=== PATIENT | female | born 1980 | race Hispanic/Latino ===

== ENCOUNTER 2019-12-18 06:57 | Outpatient (CLI) | payer BC, OTHER ==
[2019-12-18 14:03] LABS: Hemoglobin 12.3 g/dL (12.0-16.0); Mean Corpuscular HGB CONC 31.8 g/dL (32.0-36.0); Mean Corpuscular Hemoglobin 25.1 pg (27.0-31.0); Mean Corpuscular Volume 78.8 fL (78.0-98.0); Mean Platelet Volume 9.3 fL (7.4-10.4); Platelet Count 275 thou/uL (130-400); White Blood Cell (WBC) Count 6.8 thou/uL (4.8-10.8)
[2019-12-18 15:05] LABS: BHCG - Serum Negative (NEGATIVE); Pregs Control Background? CLEAR/WHITE (CLR/WHITE); Pregs Control Bar Appear? YES (CONTROL BAR)
[2019-12-19 12:08] LABS: SARS-CoV-2 MS2 Positive; SARS-CoV-2 N Gene Negative; SARS-CoV-2 S Gene Negative; SARS-CoV-2 orf1ab Negative
== END 2019-12-18 06:58 | disposition home or self-care (01) ==
LOC: LABBT 06:57
PROVIDERS: ATTEND Student in an Organized Health Care Education/Training Program
DX: Z01.812 Encounter for preprocedural laboratory examination (principal); Z11.59 Encounter for screening for other viral diseases; N85.01 Benign endometrial hyperplasia
CPT/HCPCS: 84703; 85027; 86850; 86900; 86901; 87635; U0003

== ENCOUNTER 2019-12-22 05:37 | Day surgery (SDC) | payer BC ==
[2019-12-17 10:01] VITALS: BMI 44.4
[2019-12-22] MEDS ORDERED: Gabapentin 300 MG CAP ONE (06:17)
[2019-12-22] MEDS ORDERED: Famotidine/PF 20 mg/2ml Vial ONE (06:17)
[2019-12-22] MEDS ORDERED: CeleCOXIB 100 MG CAP ONE (06:17)
[2019-12-22] MEDS ORDERED: Bupivacaine PF 0.5% 30 ML VIAL ONE (06:56)
[2019-12-22] MEDS ORDERED: Lidocaine 1% w/Epinephrine 1:100K 20 ML VIAL ONE (06:56)
[2019-12-22] MEDS ORDERED: Fentanyl 250 MCG/5 ML VIAL ONE (06:57)
[2019-12-22] MEDS ORDERED: Promethazine HCl 25 MG/ML VIAL SLOW IVP PRN (10:00)
[2019-12-22] MEDS ORDERED: Promethazine HCl 25 MG/ML VIAL IM PRN (10:00)
[2019-12-22] MEDS ORDERED: Ondansetron HCl/PF 4 MG/2 ML Vial IVP PRN (10:00)
[2019-12-22] MEDS ORDERED: Fentanyl 100 MCG/2 ML VIAL ONE (10:36)
[2019-12-22] MEDS ORDERED: Dexamethasone 20 MG/5 ML VIAL ONE (11:59)
[2019-12-22] MEDS ORDERED: Lidocaine 1% PF 5 ML VIAL ONE (11:59)
[2019-12-22] MEDS ORDERED: Ondansetron PF 4 MG/2 ML Vial ONE ×2 (11:59→12:24)
[2019-12-22] MEDS ORDERED: Glycopyrrolate 0.2 MG/ML 5 ML SYRINGE ONE (11:59)
[2019-12-22] MEDS ORDERED: Rocuronium Bromide 10 MG/ML (10ML VIAL) ONE (11:59)
[2019-12-22] MEDS ORDERED: PHENYLEPHRINE-NS 100 MCG/ML 10 ML SYRINGE ONE (11:59)
[2019-12-22] MEDS ORDERED: ePHEDrine 50 MG/ML VIAL ONE (11:59)
[2019-12-22] MEDS ORDERED: PROPOFOL 200 MG/20 ML VIAL ONE (11:59)
[2019-12-22] MEDS ORDERED: Estradiol 0.05mg/24 Hour Patch (Weekly) TD SCH (12:30)
--- NOTE | 2019-12-22 13:33 | OP ---
DATE OF PROCEDURE: 12/22/2019 PREOPERATIVE DIAGNOSES: 1. Complex hyperplasia. 2. Left adnexal mass. 3. Menorrhagia. POSTOPERATIVE DIAGNOSES: 1. Complex hyperplasia. 2. Left adnexal mass. 3. Menorrhagia. PROCEDURE PERFORMED: Robotic-assisted total laparoscopic hysterectomy and bilateral salpingo-oophorectomy. ANESTHESIA: General endotracheal. MARKETING BUDGET ANALYST SURGEON: Lana Nielsen. ESTIMATED BLOOD LOSS: 50 mL. IVF: 1400 mL of crystalloid. URINE OUTPUT: 250 mL of clear urine. COMPLICATIONS: None. DRAINS: Posada catheter. PATHOLOGY: Uterus, cervix, bilateral fallopian tubes and ovaries. FINDINGS: Uterus 11- to 12-week size. Normal-appearing cervix and vagina. Large left adnexal mass adherent to the pelvic sidewall. Right ovarian cyst present. Bilateral ureters traced in the pelvic sidewall down to where they crossed under the uterine artery. Bladder without injury on back filling with saline and excellent hemostasis. DESCRIPTION OF PROCEDURE: The patient was taken to the operating room where general anesthesia was obtained without difficulty. The patient was prepped and draped in a sterile fashion in the dorsal lithotomy position. Posada catheter was placed in the bladder. A speculum was placed in the vagina. The anterior lip of the cervix was grasped with a single-tooth tenaculum. The uterus then sounded to 11 cm. The cervix was progressively dilated with Horacio dilators. A HARPAL manipulator was assembled with a 10-cm tip and a 4-cm colpotomizer ring. The manipulator was inserted into the uterus and the ring was advanced to fit snugly around the cervix. The tenaculum and speculum were removed out of the vagina. Legs were placed in low lithotomy. Attention was turned to the abdomen. A mixture of 1% lidocaine with epinephrine and 0.25% Marcaine was infiltrated into the umbilicus and a 12-mm skin incision was made in the umbilicus. A Veress needle was inserted and opening pressure was noted to be 6 mmHg. Pneumoperitoneum was obtained without difficulty. The Veress needle was removed. The 12-mm trocar was advanced into the abdomen and confirmed placement with robotic camera. Trendelenburg was obtained. Anesthesia was having difficulty with ventilation. Therefore, Trendelenburg was reduced. Right and left lower quadrant 8-mm robotic trocars were placed under direct visualization after infiltrating with anesthetic. A right upper quadrant 11-mm port was also placed under direct visualization after infiltrating with anesthetic. The above findings were noted. There was adequate visualization with the patient in minimal Trendelenburg. Therefore, the robot was docked. The right robotic arm contained monopolar scissors. Left robotic arm contained a fenestrated bipolar. The surgeon console then took control. The right ovary was noted to have multiple cysts present, these were not large. However, secondary to the left-sided mass, the decision was made to remove the right side as well as it may have some pathology going on. The IP ligament was clamped with the fenestrated and cauterized after noting the ureter running medially at the pelvic brim. This was incised and cautery followed by incision was performed across the meso-ovarium and down to the midportion of the round ligament, that was cauterized and incised. The posterior leaf of the broad ligament was dropped down after undermining and dissecting retroperitoneum off the superficial layer of peritoneum. This was incised down to the uterosacral ligament and the lateral retroperitoneum was then dissected out to identify the ureter running in the pelvic sidewall, crossing underneath the uterine vessel. The anterior leaf of the broad ligament was also incised down to the level of the bladder flap. The vessels were skeletonized on the right side and the uterine artery was cauterized after skeletonization. Attention was then turned to the left side. There were some filmy adhesions of the sigmoid to the pelvic sidewall right near the IP ligament. This was incised carefully with the scissors, layering out. The peritoneum was also incised laterally to the IP ligament in order to make a window. The ovary was adherent to the pelvic sidewall. For the most part, this was able to be peeled away bluntly just by putting traction on the ovary. Once the IP ligament was dissected out, it was clamped across. The ureter was noted medially at the pelvic brim and the ligament was elevated off the pelvic brim and the sidewall and this was cauterized and then incised. The peritoneum was then layered out after incising the IP in order to ensure no underlying structures were being dissected or incised. Again, the ureter was more posterior than the area that was being dissected. The peritoneum was layered out and taken all the way down to the distal-most portion of the ovary. The medial utero-ovarian was also cauterized and incised and this allowed the ovary to be freed and placed the ovary in the upper abdomen. The uterine vessels were then skeletonized on the left side. The bladder flap was created both bluntly dissecting down the bladder below the level of the colpotomizer ring as well as sharply incising on the pubocervical fascia. The bladder was backfilled to ensure no bladder injury had occurred, which was negative, and the vessels were cauterized bilaterally at the uterine artery. These were then incised. It was noted that there was some increased vascularity over the bladder flap and this required cautery for hemostasis. Colpotomy was then performed circumferentially and the uterus had been completely transected. The uterus was then placed into the vagina. At that time, secondary to the size of the adnexal mass, decision was made to back it up. The applied Medical retrieval bag was then inserted through the vagina into the abdomen. The scissors were traded out for the needle company tanker truck driver. Hemostasis was achieved of the vaginal cuff and irrigation was performed. The vagina was then closed with a 2-0 STRATAFIX barbed suture in a running fashion, noting excellent hemostasis and ran back for a 2nd layer. The needle was cut and removed out of the abdomen. At that time, I scrubbed back in and undocked the camera port. The umbilical incision was extended with a knife and the Corey's were used to extend the fascia to 3 cm and accommodate the mini Shaheen and GelPOINT. The Mini Shaheen was placed into the umbilical incision and the GelPOINT was affixed atop it with the port in place. The robot camera port was then re-docked and I went back to the console, opened the bag and placed the ovary in the bag. The bag was then brought out of the Mini GelPOINT. The robot was then completely undocked and the pneumoperitoneum was released. All instruments were removed out of the abdomen. The bag was brought out of the mini Shaheen and the ovary was grasped and incised. There was a copious amount of sebaceous material as well as hair, identifying this as a dermoid cyst, that was suctioned out of there. There was no spillage of any contents on the skin and subcutaneous tissue or inside the abdomen. The ovary mass was entirely removed easily, and the bag and Shaheen were removed out of the abdomen. The incision was irrigated. The remainder of the local was infiltrated into the umbilicus. The fascia was grasped with a Larry and closed with a 0 Vicryl in a [id number] fashion across the length of the 3 cm incision. The skin was then closed with a 4-0 Monocryl in a subcuticular fashion. Dermabond was applied. The vagina was checked and noted to be hemostatic with excellent closure. The patient tolerated the procedure well. Sponge, lap, and needle counts correct x2. The patient was taken to recovery room in stable condition. The patient received Ancef 2 g prior to the procedure. Job ID: [id number]
== END 2019-12-22 13:20 | disposition home or self-care (01) ==
LOC: SDC 05:37
PROVIDERS: ATTEND Student in an Organized Health Care Education/Training Program
PROC: 0UT94ZZ Resection of Uterus, Percutaneous Endoscopic Approach (ICD-10-PCS; principal; 2019-12-22)
PROC: 0UT24ZZ Resection of Bilateral Ovaries, Percutaneous Endoscopic Approach (ICD-10-PCS; principal; 2019-12-22)
PROC: 0UT74ZZ Resection of Bilateral Fallopian Tubes, Percutaneous Endoscopic Approach (ICD-10-PCS; principal; 2019-12-22)
DX: D27.1 Benign neoplasm of left ovary (principal); N85.01 Benign endometrial hyperplasia; N72 Inflammatory disease of cervix uteri; N83.201 Unspecified ovarian cyst, right side; N87.9 Dysplasia of cervix uteri, unspecified; N80.0 Endometriosis of uterus; E66.9 Obesity, unspecified; Z68.41 Body mass index [BMI] 40.0-44.9, adult
CPT/HCPCS: 88307; J0690; J2405; J3010; S0020; S0028